=== PATIENT | male | born 1950 | race Caucasian/White ===

== ENCOUNTER 2019-04-07 09:22 | Outpatient (CLI) | payer MEDICARE ==
[2019-04-07 17:52] VITALS: BP 126/72
--- NOTE | 2019-04-07 17:52 | SLEEP CARE CONSULTATION ---
Information from patient questionnaire entered by Sammie Dahl. I have reviewed and concur with the information entered by Sammie Dahl. This document represents the service I personally performed and the decisions made by me, Dagoberto Walker MD, [facility]. History of Present Illness Reason for Visit: New patient, Previously diagnosed sleep apnea, sleep apnea on CPAP therapy Chief Complaint: reports: Other (need new CPAP) Duration of Symptoms: 20+ years Usual bedtime: 2330 Time it takes to fall asleep: 5-10 minutes Snores at night: Yes (without CPAP) Observed to quit breathing while asleep: No Sleeps alone due to snoring: Yes (not when they travel) Number of times waking at night: 1 Reasons for waking at night: reports: Bathroom Recalls having dreams: Yes Usually gets out of bed at: 0730 Feels refreshed in the morning: Yes Morning headache: No Sleepy or fatigued during the day: No Ever fallen asleep while driving: No Takes day naps: No Dreams during day naps: No Prior sleep studies: Yes Year and Where: 2010 in [place], [place] Additional HPI information: I had the pleasure of seeing Mr. Ortiz today regarding obstructive sleep apnea- hypopnea. As you know, he is a 68 year old gentleman who was diagnosed with the sleep-disordered breathing at [facility] about 10 years ago. The actual sleep study report is not available. He was prescribed a CPAP device set at 5 10 cmH2O. He uses the ResMed S9 every night and all night. The compliance data show usage in 180 out of the past 180 nights, averaging 6 hours a night. The residual AHI is 1.2 and average air leak is 1.1 L/minute. The 90th percentile pressure is 7 cmH2O. He wears ResMed AirFit P-10 nasal pillows. He gets his supplies from [employer]. He finds the treatment very beneficial. CPAP Compliance Data - Data Reviewed with Patient Average duration of nightly device use: 5h 58m Compliance rate %: 94 Current pressure setting (cmH2O): 5-10 Subjective Initial [place] Sleepiness Scale score: 2 Social History The patient's occupation is retired. Patient is and lives in [place]. Have you smoked in the past 12 months: No Alcohol use: Yes Alcohol amount and frequency: 1-2 most evenings Caffeine use: Yes Caffeine amount and frequency: 2-3 cups/day Family History Family history of sleep disordered breathing: Yes Family Hx Sleep Apnea: Sibling: Snoring Allergies and Home Medications Drug allergies reviewed: Yes Home medication list reviewed: Yes Review of Systems Weight loss over past 5 years: 15 Cardiovascular: denies: high blood pressure, palpitations, chest pain, irregular heart rate or pulse, leg or foot swelling, have to sleep sitting up, other Respiratory: denies: shortness of breath, wheeze, sputum production, chronic cough, other Gastrointestinal: reports: heartburn (occasional) Urinary: reports: urgency (mild). denies: incontinence, frequency, impotence, other Neurological: denies: headaches, seizure, head trauma, disorientation, speech dysfunction, gait or balance problems, fainting or unconsciousness, other Psychiatric: denies: Attention Deficit Hyperactivity, anxiety, depression, mood disorder, claustrophobia, other Ear/Nose/Throat: reports: nasal congestion, dry mouth/throat, hoarseness, wisdom teeth removed (*one) Endocrine: denies: thyroid disease, history of goiter, sluggishness, too hot or cold, excessive thirst, increased appetite, increased urination, unexplained weakness, other Musculoskeletal: denies: joint pain, neck pain, back pain, joint swelling, muscle pain or cramping, mobility problems, other Immunologic: reports: sneezing. denies: rash, itching, allergies to food or environment, other Physical Exam Vital signs obtained and entered by: Dr. Walker Blood Pressure: 126/72 Cuff size: regular Heart Rate: 72 O2 Saturation: 97 Height: 6 ft Weight: 200 lb Body Mass Index: 27.1 BMI Classification: Overweight Neck circumference: 16 HEENT: No craniofacial malformation Nostrils: patent to airflow Turbinates: normal Septum: midline Mouth and throat: narrow oropharynx Soft palate: long Hard palate: normal Uvula: normal Uvula visualization: 50% Mallampati Class II Tongue: normal in size Tonsils: small Chin and jaw: normal size and position Neck: normal w/o lymphadenopathy or thyromegaly Heart: regular rate and rhythm Lungs: clear bilaterally Abdomen: soft, non-tender Extremities: no edema or clubbing Neurologic: intact, no focal deficits Impression and Plan IMPRESSION: 1. Obstructive Sleep Apnea-Hypopnea Syndrome, of unknown severity, as previously diagnosed. The patient has had good treatment compliance. The current pressure setting appears effective and comfortable. The patient experiences improvement on the treatment. Narrow oropharynx and obesity are common predisposing factors for obstructive sleep apnea-hypopnea syndrome. The retrognathia probably plays a role. Pathophysiology of sleep-disordered breathing was discussed. Because the CPAP is now older than the useful life of 5 years, I will order the patient a new one and make it an autoCPAP set between 5 and 10 cmH2O. Plan: 1. Prescription made for CPAP supplies. 2. Try Respironics DreamWear nasal cushion mask and ResMed N30i mask 3. Avoid alcohol, sedative and muscle relaxant around bedtime. 4. Attempt to lose weight. 5. Return for follow up after one month on the new machine. I spent 100% of this 20 minute visit face to face with the patient with greater than 50% of this was spent time counseling the patient and coordination of care.
== END 2019-04-07 09:23 | disposition home or self-care (01) ==
LOC: SC 09:22
PROVIDERS: ATTEND Internal Medicine Pulmonary Disease
DX: G47.33 Obstructive sleep apnea (adult) (pediatric) (principal)
CPT/HCPCS: 99203; G0463; 99212

== ENCOUNTER 2019-07-07 09:43 | Outpatient (CLI) | payer MEDICARE ==
--- NOTE | 2019-07-07 10:38 | SLEEP CARE CONSULTATION ---
Information from patient questionnaire entered by Sammie Dahl. I have reviewed and concur with the information entered by Sammie Dahl. This document represents the service I personally performed and the decisions made by me, Dagoberto Walker MD, [facility]. History of Present Illness Previous diagnosis: Moderate, Obstructive Sleep Apnea-Hypopnea Syndrome AHI: 26.5 Reason for follow up: first compliance Equipment type: CPAP Equipment obtained from: [employer] Mask style: Nasal pillows Prior sleep studies: Yes Year and Where: 2011 [facility] HPI additional information: HPI: Mr. Angel HARDY returned today for follow up of nasal CPAP therapy. He was diagnosed to have moderate obstructive sleep apnea-hypopnea syndrome (AHI was 26.5) over 10 years ago at [facility]. [employer] is his durable medical supplier. The patient wears a nasal mask. He reports using the device nightly and all through the night. The compliance report shows usage in 30 nights out of the past 30 nights, averaging 5.9 hours a night. The > 4 hour compliance rate for the past 30 days is 100%. He complained of headache and dry mouth. He thinks that the pressure of 5 10 cmH2O is comfortable. On the CPAP therapy he notices improvement in his sleep quality, and that he wakes up feeling fresher in the morning and more awake/alert during the day. [place] Sleepiness Scale score is 2. His notices no snore at all. The average r esidual AHI is 6.7; and average time in large leak per day is 5 minutes. The 90th percentile pressure is 9.1 cmH2O. CPAP Compliance Data - Data Reviewed with Patient Average duration of nightly device use: 5h 55m Compliance rate %: 93.3 Current pressure setting (cmH2O): 5-10 Humidity settin Heated hose settin Average residual AHI: 6.7 Average large leak: 5m 16s Subjective Patient concerns: reports: nasal congestion (sometimes), dry mouth, nose, throat (sometimes), other (headache sometimes) Initial [place] Sleepiness Scale score: 2 Current [place] Sleepiness Scale score: 2 Allergies and Home Medications Drug allergies reviewed: Yes Home medication list reviewed: Yes Physical Exam Height: 6 ft Weight: 200 lb Body Mass Index: 27.1 BMI Classification: Overweight Impression and Plan IMPRESSION: 1. Obstructive Sleep Apnea-Hypopnea Syndrome, moderate, with the patient doing well on nasal CPAP therapy. He has excellent compliance and significant clinical improvement. The current pressure appears comfortable but slightly ineffective. His nasal pillows fit well. Overall, he is very satisfied with treatment and plans to continue with it long-term. I will raise the pressure range to make the treatment more effective. He should increase the heated humidifier setting if he is dry or congested. PLAN: 1. AutoCPAP raised to 7 - 12 cmH2O via the modem. 2. Try Respironics DreamWear nasal cushion mask or ResMed N30i mask. 3. Increase the heated humidifier setting. I showed him how to do this. 4. Return in one month for follow up to recheck the residual AHI value. I spent 100% of this visit face to face with the patient with greater than 50% of this was spent time counseling the patient and coordination of care.
== END 2019-07-07 09:44 | disposition home or self-care (01) ==
LOC: SC 09:43
PROVIDERS: ATTEND Internal Medicine Pulmonary Disease
DX: G47.33 Obstructive sleep apnea (adult) (pediatric) (principal); E66.3 Overweight; Z68.27 Body mass index [BMI] 27.0-27.9, adult
CPT/HCPCS: 99213; G0463; 99212

== ENCOUNTER 2019-08-18 16:40 | Outpatient (CLI) | payer MEDICARE ==
--- NOTE | 2019-08-18 11:25 | SLEEP CARE CONSULTATION ---
Information from patient questionnaire entered by Sammie Dahl. I have reviewed and concur with the information entered by Sammie Dahl. This document represents the service I personally performed and the decisions made by me, Dagoberto Walker MD, [facility]. History of Present Illness Previous diagnosis: Moderate, Obstructive Sleep Apnea-Hypopnea Syndrome AHI: 26.5 Reason for follow up: other (2 MONTH PRESSURE CHANGE) Equipment type: CPAP Equipment obtained from: [email or web address] HPI additional information: To minimize the risk of COVID-19 exposure, the patient has requested and consented to this video telemedicine visit. The patient also agrees to having his insurance billed. HPI: Mr. Angel HARDY was called today for follow up of nasal CPAP therapy. He was diagnosed to have moderate obstructive sleep apnea-hypopnea syndrome (AHI was 26.5) over 10 years ago at [facility]. [email or web address] is his durable medical supplier. The patient wears a nasal mask. He reports using the device nightly and all through the night. The compliance report shows usage in 30 nights out of the past 30 nights, averaging 6.3 hours a night. The > 4 hour compliance rate for the past 30 days is 100%. He complained of headache and dry mouth. He thinks that the pressure of 7 - 12 cmH2O is comfortable (raised from 5 10 cmH2O for elevated residual AHI two months ago). On the CPAP therapy he notices improvement in his sleep quality, and that he wakes up feeling fresher in the morning and more awake/alert during the day. The average residual AHI is 9.0 (was 6.7) with most of the events being hypopneas; and average time in large leak per day is 27 minutes (was 5 minutes). The 90th percentile pressure is 10.4 cmH2O. CPAP Compliance Data - Data Reviewed with Patient Average duration of nightly device use: 6H 6M Compliance rate %: 95 Current pressure setting (cmH2O): 7-12 Humidity settin Heated hose settin Average residual AHI: 8.1 Average large leak: 18M 15S Subjective Initial [place] Sleepiness Scale score: 2 Allergies and Home Medications Drug allergies reviewed: Yes Home medication list reviewed: Yes Review of Systems Review of systems same as previous: Yes Physical Exam Height: 6 ft Impression and Plan IMPRESSION: 1. Obstructive Sleep Apnea-Hypopnea Syndrome, moderate, with the patient doing well on nasal CPAP therapy. He has excellent compliance and significant clinical improvement. The current pressure appears comfortable but still is slightly ineffective. His nasal pillows fit well. Overall, he is very satisfied with treatment and plans to continue with it long-term. I will lower the pressure range back down because both the residual AHI and air leak have increased. I would like him to have a manual CPAP/BiPAP titration study when the sleep lab is back operational, hopefully, in a month or so. PLAN: 1. AutoCPAP lowered back down to 5 - 10 cmH2O via the modem, done. 2. Try Respironics DreamWear nasal cushion mask or ResMed N30i mask. He will go to [facility] in person. 3. Return in three months for follow up to recheck the residual AHI value. 4. Consider a manual CPAP titration study then. Visit Type: Telehealth Video Video Type: [employer] Location of Provider: Home Patient agrees and consents to this telehealth visit type: Yes Provider Statement: I spent 100% of the Telehealth Video Call with the patient with greater than 50% spent counseling the patient and coordination of care.
== END 2019-08-18 16:41 | disposition home or self-care (01) ==
LOC: SC 16:40
PROVIDERS: ATTEND Internal Medicine Pulmonary Disease
DX: G47.33 Obstructive sleep apnea (adult) (pediatric) (principal)
CPT/HCPCS: 99212; 99213

== ENCOUNTER 2019-11-23 09:51 | Outpatient (CLI) | payer MEDICARE ==
[2019-11-23 11:07] VITALS: BP 112/68
--- NOTE | 2019-11-23 11:07 | SLEEP CARE CONSULTATION ---
Information from patient questionnaire entered by Ele Reina. I have reviewed and concur with the information entered by Ele Reina. This document represents the service I personally performed and the decisions made by me, Verónica Ocampo, RN, MSN, [employer]INTE[employer]CE WORKER. History of Present Illness Service Date and Time: 11/23/2019 0951 Previous diagnosis: Moderate AHI: 26.4 (in 2010) Reason for follow up: three month Equipment type: CPAP Equipment obtained from: [employer] (in [place]) Mask style: Nasal pillows Backup mask available: Yes (old mask) Last cushion change: 2 days ago Prior sleep studies: Yes Year and Where: 2010 - [facility] Type of Sleep Study: Home sleep study HPI additional information: He tried a nasal mask that had the hose on top of head but it was not as comfortable as current mask. He has notified [employer] of his mask choice. CPAP Compliance Data - Data Reviewed with Patient Average duration of nightly device use: 6 Compliance rate %: 91.1 (90 days) Current pressure setting (cmH2O): 5-10 Humidity settin Heated hose settin Average residual AHI: 8.2 Central apnea: 0.6 Obstructive apnea: 1.5 Hypopnea: 6.1 Average large leak: 7 min 19 sec Subjective Patient concerns: reports: condensation in mask/hose (scant in mask), nasal congestion (occasional but none now), dry mouth, nose, throat (rarely - nose and mouth ). denies: mask discomfort, air blowing in eyes, mask leak noise, epistaxis Observed to snore while using device: No Current pressure setting perceived as: comfortable On therapy, patient: reports: sleeping better, awakening more refreshed, being more awake and alert during the day. denies: more rested overall, drowsiness while driving Initial [place] Sleepiness Scale score: 2 (in 2019) Current [place] Sleepiness Scale score: 1 Allergies and Home Medications Known drug allergies: Yes (CT scan dye ) Home medication list reviewed: No (taking no medications ) Review of Systems Review of systems same as previous: Yes Physical Exam Blood Pressure: 112/68 Cuff size: long Heart Rate: 66 O2 Saturation: 96 Height: 6 ft Weight: 205 lb Body Mass Index: 27.8 BMI Classification: Overweight Impression and Plan 1. Obstructive Sleep Apnea-Hypopnea Syndrome, moderate, with good treatment compliance and elevated residual AHI. apnea control. On CPAP therapy, the patient has better sleep quality and is more rested overall. Since his AHI remains elevated, I will order the manual titration study to find optimal comfortable pressure as he was not comfortable with higher ranges tried before. Patient agreed with plan. Nasal congestion can be reduced with increasing the CPAP humidity as shown on sample device. The heated hose can be adjusted higher if condensation with higher humidity setting. Saline nasal spray can also be used prior to CPAP to clear nasal secretions and wash off any nasal allergens to facilitate nasal breathing. He has at home and uses occasionally. In addition, a steamy shower before bed will often assist nasal drainage. Verbal instructions given on how to change humidity and heated hose settings with rationale explaining why to change. He can contact his DME for further instruction or check manual if needed. Oral dryness can be reduced by adjusting humidity setting higher or heated hose lower or by adjusting both settings. He uses a So Clean 2 so I informed him of the newFDA warning and to resume soap and water cleaning as discussed and stop the use of the So Clean. He is advised to check FDA site and agreed with plan. Patient's apnea severity and rationale for treatment to reduce apnea, improve sleep quality and reduce cardiovascular and cerebrovascular events was reviewed. * Continue auto CPAP pressure at 5-10 cmH2O * Schedule manual titration study * Implement methods to reduce nasal congestion and oral dryness. * Notify me if snoring with mask or feeling that the pressure is too much or too little * Attempt to lose weight * Call this office if any problems using CPAP * Return for follow up after manual titration , or sooner if concerns arise Visit Type: In Office Time Spent with Patient (minutes): 28 Provider Statement: I spent 100% of the Face to Face Visit with the patient with greater than 50% spent counseling the patient and coordination of care.
== END 2019-11-23 09:52 | disposition home or self-care (01) ==
LOC: SC 09:51
PROVIDERS: ATTEND Nurse Practitioner Family
DX: G47.33 Obstructive sleep apnea (adult) (pediatric) (principal); E66.3 Overweight; Z68.27 Body mass index [BMI] 27.0-27.9, adult
CPT/HCPCS: 99214; G0463; 99212

== ENCOUNTER 2020-02-08 20:17 | Outpatient (CLI) | payer MEDICARE | END 2020-02-08 20:18 | disposition home or self-care (01) | LOC: SC 20:17 | PROVIDERS: ATTEND Nurse Practitioner Family | DX: G47.33 Obstructive sleep apnea (adult) (pediatric) (principal); G47.61 Periodic limb movement disorder | CPT/HCPCS: 95811 ==

== ENCOUNTER 2020-02-22 16:29 | Outpatient (CLI) | payer MEDICARE ==
[2020-02-23 11:24] VITALS: BP 120/80
--- NOTE | 2020-02-23 11:24 | SLEEP CARE CONSULTATION ---
Information from patient questionnaire entered by Sammie Dahl. I have reviewed and concur with the information entered by Sammie Dahl. This document represents the service I personally performed and the decisions made by me, Verónica Ocampo, RN, MSN, [employer] REPAIRER. History of Present Illness Service Date and Time: 02/22/2020 7024 Previous diagnosis: Moderate, Obstructive Sleep Apnea-Hypopnea Syndrome AHI: 26.4 (in 2010) Reason for follow up: with manual titration, other (2 month) Equipment type: CPAP Equipment obtained from: [employer] (in [place]) Mask style: Nasal pillows (Nunce Pro nasal pillows - large) Prior sleep studies: Yes Year and Where: 2010 - [facility] Type of Sleep Study: Polysomnography HPI additional information: Nasal symptoms and oral dryness less with adjustment of humidity. He wonders if he is oral venting. He does not use a chinstrap. Sleep Study - Results Type of Sleep Study: Polysomnography Prior sleep studies: Yes Year and Where: 2010 - [facility] Polysomnography/Home Sleep Study results: The quality of the study is good. CPAP was initiated at 4 cmH2O and titrated up to CPAP at 7 cmH2O. CPAP at 7 cmH2O appeared to be optimal (AHI of 0.2 per hour on the pressure). There was supine REM sleep on the pressure. Oxygen saturation was normal throughout the night. Lower CPAP settings appeared adequate as well. The patient appeared to have tolerated positive airway pressure therapy very well. The patients sleep efficiency was normal. The sleep architecture was normal as well. There was moderate periodic leg movement of sleep not associated with sleep fragmentation. Cardiac rhythm was normal sinus rhythm without significant arrhythmia. No abnormal behavior (parasomnia) observed during the night. CPAP Compliance Data - Data Reviewed with Patient Average duration of nightly device use: 5 hours 46 minutes Compliance rate %: 90 Current pressure setting (cmH2O): 5-10 Humidity settin Heated hose settin Average residual AHI: 10 Average large leak: 15 minutes 14 seconds Subjective Patient concerns: reports: dry mouth, nose, throat. denies: aerophagia, mask discomfort, air blowing in eyes, mask leak noise, condensation in mask/hose, nasal congestion, epistaxis, other Observed to snore while using device: No Current pressure setting perceived as: comfortable On therapy, patient: reports: sleeping better, awakening more refreshed, being more awake and alert during the day, more rested overall. denies: drowsiness while driving Initial [place] Sleepiness Scale score: 2 (in 2020) Allergies and Home Medications Known drug allergies: No Home medication list reviewed: No (no meds ) Review of Systems Review of systems same as previous: No (excision of ganglion cyst of left toe) Physical Exam Blood Pressure: 120/80 Cuff size: long Heart Rate: 66 O2 Saturation: 98 Height: 6 ft Weight: 203 lb Body Mass Index: 27.5 BMI Classification: Overweight Impression and Plan 1. Obstructive Sleep Apnea-Hypopnea Syndrome,moderate , with unknown treatment compliance and apnea control. There was a outage of the internet and phones so compliance was not available at time of office visit On CPAP therapy, the patient has better sleep quality and is more rested overall. Patient had a manual titration study to evaluate for optimal pressure as past higher CPAP pressures tried were uncomfortable. The manual titration study showed that 7cmH20 pressure was best with current patient mask with a residual AHI of 0.2. Thus I will change patient pressure to 7cmH20. Patient advised to contact me if the pressure is uncomfortable. Methods discussed to reduce oral venting such as adjusting humidity more and / or adding a chinstrap. The patient deferred as wants to focus on one change at a time and agreed to change CPAP pressure. Patient's apnea severity and rationale for treatment to reduce apnea, improve sleep quality and reduce cardiovascular and cerebrovascular events was reviewed. 2. Periodic limb movement, moderate, that did not fragment patients sleep. Periodic limb movement of sleep (PLMS) is characterized by episodes of repetitive limb movements that occur during sleep and usually involve the lower limbs. The etiology is unknown but can be associated with restless leg syndrome (RLS), neuropathy, spinal cord diseases, kidney disease, rheumatological disorders, narcolepsy, obstructive sleep apnea, and REM sleep behavior disorder. Other factors that can increase PLMS and/or RLS are heredity and iron deficiency as reflected by a low serum ferritin level below 50 to 75mcg / L. Several medications can precipitate or aggravate PLMS such as selective serotonin re- uptake inhibitor antidepressants, tricyclic antidepressants, lithium, and dopamine receptor antagonists with the exception of bupropion. Caffeine can also aggravate PLMS and should be avoided. Sleep hygiene methods can also improve sleep as well as lifestyle changes such as regular exercise. Patient was advised that no treatment is needed at this time. If symptoms increase, then further evaluation is indicated. * Change CPAP pressure to 7 cmH2O * Notify me if snoring with mask or feeling that the pressure is too much or too little * Attempt to lose some weight * Call this office if any problems using CPAP * Return for follow up in 1-2 months , or sooner if concerns arise Addendum: Compliance reviewed 02-23-20 and continues to show elevation of residual AHI. Late entry of this EMR note due to internet outage. Visit Type: In Office Time Spent with Patient (minutes): 32 Provider Statement: I spent 100% of the Face to Face Visit with the patient with greater than 50% spent counseling the patient and coordination of care.
== END 2020-02-22 16:30 | disposition home or self-care (01) ==
LOC: SC 16:29
PROVIDERS: ATTEND Nurse Practitioner Family
DX: G47.33 Obstructive sleep apnea (adult) (pediatric) (principal); G47.61 Periodic limb movement disorder; E66.3 Overweight; Z68.27 Body mass index [BMI] 27.0-27.9, adult
CPT/HCPCS: 99214; G0463; 99212

== ENCOUNTER 2020-08-06 18:34 | Emergency (ER) | payer MEDICARE ==
--- NOTE | 2020-08-06 19:28 | ED Physician Documentation ---
PD HPI ABD PAIN - Stated complaint Stated Complaint: DIARRHEA,MALE - Chief complaint Chief Complaint: Abd Pain - History obtained from History obtained from: Patient - History of Present Illness Timing - onset: Enter time (09:00), Today Timing - details: Gradual onset, Waxing and waning Pain level now: 7 (across lower abdomen, predominantly suprapubic) Quality: Pain Location: Other (across lower abdomen) Improved by: Other (nothing) Worsened by: Palpation Associated symptoms: No: Fever (Tmax at home was 99), Nausea, Vomiting, Hematemesis, Diarrhea, Constipation, Melena, Hematochezia, Dysuria, Hematuria Similar symptoms before: Has not had sx before Recently seen: Not recently seen - Additional information Additional information: c/o urge to urinate but unable to have any UO, since earlier today. Also, since 9 AM, has had pain across lower abdomen associate with urge to defecate with only small amount of watery stool output. Review of Systems Constitutional: denies: Fever, Chills, Sweats Cardiac: reports: Reviewed and negative Respiratory: reports: Reviewed and negative GI: reports: Abdominal Pain. denies: Abdominal Swelling, Nausea, Vomiting, Constipation, Diarrhea, Hematemesis, Bloody / black stool : reports: Unable to Void. denies: Dysuria, Frequency, Incontinent Musculoskeletal: denies: Back pain PD PAST MEDICAL HISTORY - Past Medical History Past Medical History: No - Past Surgical History Past Surgical History: Yes General: Other (left inguinal hernia repair) HEENT: Other (multiple sinus surgeries) - Allergies Allergies/Adverse Reactions: Allergies Allergy/AdvReac Type Severity Reaction Status Date / Time No Known Drug Allergies Allergy Verified 08/06/20 18:47 - Living Situation Living Arrangement: reports: At home PD ED PE NORMAL - Vitals Vital signs reviewed: Yes - General General: Alert and oriented X 3, No acute distress, Well developed/nourished - Cardiac Cardiac: No murmur - Respiratory Respiratory: No respiratory distress, Clear bilaterally - Abdomen Abdomen: Soft, Other (TTP across lower abdomen without rebound or guarding) - Back Back: No CVA TTP - Derm Derm: Normal color, Warm and dry - Extremities Extremities: No edema PD ED PE EXPANDED - Cardiac Cardiac: Tachy, Regular Rhythm Results - Vitals Vitals: Vital Signs - 24 hr 08/06/20 08/06/2008/06/21 18:47 19:37 21:10 Temperature 36.8 C 36.8 C 37.0 C Heart Rate 120 H 120 H 86 Respiratory 16 16 16 Rate Blood Pressure 132/90 H 132/90 H 117/76 O2 Saturation 97 97 98 08/06/20 21:59 Temperature 36.9 C Heart Rate 97 Respiratory 18 Rate Blood Pressure 133/81 H O2 Saturation 97 Oxygen O2 Source Room air - Labs Labs: Laboratory Tests 08/06/20 08/06/20 08/06/20 19:11 19:11 19:53 WBC 18.6 H RBC 5.35 Hgb 16.6 Hct 48.0 MCV 89.7 MCH 31.0 MCHC 34.6 RDW 12.1 Plt Count 279 MPV 10.1 Neut # (Auto) 16.2 H Lymph # (Auto) 1.3 L Mccreary # (Auto) 1.0 Eos # (Auto) 0.0 Baso # (Auto) 0.0 Absolute Nucleated RBC 0.00 Nucleated RBC % 0.0 Sodium 137 Potassium 3.8 Chloride 103 Carbon Dioxide 23 Anion Gap 11.0 BUN 19 Creatinine 1.0 Estimated GFR (MDRD) 74 L Glucose 138 H Calcium 9.7 Total Bilirubin 1.1 H AST 29 ALT 33 Alkaline Phosphatase 71 Total Protein 7.8 Albumin 4.7 Globulin 3.1 Albumin/Globulin Ratio 1.5 Lipase 27 Urine Color YELLOW Urine Clarity CLEAR Urine pH 6.0 Ur Specific [place] 1.025 Urine Protein NEGATIVE Urine Glucose (UA) NEGATIVE Urine Ketones TRACE Urine Occult Blood NEGATIVE Urine Nitrite NEGATIVE Urine Bilirubin NEGATIVE Urine Urobilinogen 0.2 (NORMAL) Ur Leukocyte Esterase NEGATIVE Ur Microscopic Review NOT INDICATED Urine Culture Comments NOT INDICATED - Rads (name of study) CT A/P Radiology: Prelim report reviewed, See rad report PD MEDICAL DECISION MAKING - ED course Complexity details: reviewed results, re-evaluated patient, considered differential, d/w patient ED course: patient had significant improvement after burch placed and approximately 500cc urine output into bag. lab work shows leukocytosis but CT does not reveal acute/emergent process. Per radiologist's interpretation, "significant stool consistent with constipation. No obstruction". incidental note of "low- attenuation focus within the right lower pelvis suggestive of fluid attenuation." Test results reviewed w/ patient. He is comfortable with plan to d/c home. He has no h/o urinary retention. I discussed option of leaving burch catheter in but he prefers to have it removed prior to discharge. He is given magnesium citrate to take at home as directed to treat the constipation, as well as given glycerin suppository for home use, as well. I advised him to follow up with his doctor regarding tonight's symptoms as well as to discuss the abnormal CT finding, which might benefit from repeat study at some point for better characterization. Departure - Departure Disposition: 01 Home, Self Care Clinical Impression: Urinary retention Constipation Qualifiers: Constipation type: unspecified constipation type Qualified Code(s): K59.00 - Constipation, unspecified Condition: Good Instructions: ED Constipation, ED Retention Urinary Male Follow-Up: Jay Saldana MD [Primary Care Provider] - Discharge Date/Time: 08/06/20 21:58
[2020-08-06 19:33] LABS: BASOPHILS % (AUTO) 0.2 %; HGB - HEMOGLOBIN 16.6 g/dL (14.0-18.0); LYMPHOCYTES # (AUTO) 1.3 10^3/uL (1.5-3.5); LYMPHOCYTES % (AUTO) 6.7 %; MEAN CORPUSCULAR HGB CONC 34.6 g/dL (32.0-36.0); MEAN CORPUSCULAR VOLUME 89.7 fL (80.0-94.0); MEAN PLATELET VOLUME 10.1 fL (7.4-11.4); MONOCYTES % (AUTO) 5.2 %; NEUTROPHILS # (AUTO) 16.2 10^3/uL (1.5-6.6); NEUTROPHILS % (AUTO) 87.1 %; PLT - PLATELET COUNT 279 10^3/uL (130-450); RED BLOOD COUNT 5.35 10^6/uL (4.70-6.10); RED CELL DISTRIBUTION WIDTH 12.1 % (12.0-15.0); WHITE BLOOD COUNT 18.6 x10^3/uL (4.8-10.8)
[2020-08-06 19:47] LABS: ALBUMIN 4.7 g/dL (3.2-5.5); ALBUMIN/GLOBULIN RATIO 1.5 (1.0-2.2); BILIRUBIN,TOTAL 1.1 mg/dL (0.2-1.0); CALCIUM 9.7 mg/dL (8.5-10.3); POTASSIUM 3.8 mmol/L (3.5-5.0); TOTAL PROTEIN 7.8 g/dL (6.7-8.2)
[2020-08-06 19:59] LABS: BILIRUBIN,URINE NEGATIVE (NEGATIVE); GLUCOSE, URINE (UA) NEGATIVE (NEGATIVE); KETONES,URINE (UA) TRACE mg/dL (NEGATIVE); LEUKOCYTE ESTERASE, URINE NEGATIVE (NEGATIVE); NITRITE,URINE NEGATIVE (NEGATIVE); OCCULT BLOOD,URINE NEGATIVE (NEGATIVE); PROTEIN,URINE NEGATIVE (NEGATIVE); UROBILINOGEN,URINE 0.2 (NORMAL) E.U./dL (NORMAL)
[2020-08-06 20:07] LABS: CLARITY,URINE CLEAR (CLEAR)
--- NOTE | 2020-08-06 20:52 | CT Report ---
PROCEDURE: Abdomen/Pelvis WO INDICATIONS: tenderness, pain across lower abdomen TECHNIQUE: Noncontrast 5 mm thick sections acquired from the diaphragms to the symphysis. 5 mm coronal and sagi ttal reformats were then performed. For radiation dose reduction, the following was used: automated exposure control, adjustment of mA and/or kV according to patient size. COMPARISON: None. FINDINGS: Image quality: Excellent. ABDOMEN: Lung bases: Lung bases are clear. Heart size is normal. Solid organs: Liver is mildly prominent size. The spleen is within normal limits.. Gallbladder is u nremarkable Pancreas is normal in contours. No adrenal nodules. Kidneys are normal in size, withou t hydronephrosis or nephrolithiasis. Peritoneum and bowel: Unenhanced bowel loops demonstrate normal wall thickness and caliber. No free fluid or air. Prominent stool without obstruction. Appendix is normal. Nodes and vessels: No retroperitoneal or mesenteric adenopathy by size criteria. Aorta and inferior vena cava are normal in caliber. Miscellaneous: Small fat-containing ventral hernia is present. PELVIS: Genitourinary: Bladder is collapsed with a Keene catheter. Miscellaneous: Fat-containing inguinal hernias are present. There is a low-attenuation focus measurin g 5.2 x 3.1 cm in the right lower pelvis, Hounsfield units measuring 3. It is along the course of the distal right ureter. There is no enhancement. Bones: No suspicious bony lesions. No vertebral body compression fractures. IMPRESSION: 1. Significant stool consistent with constipation. No obstruction. 2. Low-attenuation focus within the right lower pelvis suggestive of fluid attenuation. Differential includes but not limited to cyst, possible seroma or potentially ureterocele. No priors are available for comparison. Reviewed by: Luanne Bailey MD on 08/06/2020 8:50 PM PDT Approved by: Luanne Bailey MD on 08/06/2020 8:50 PM PDT Station ID: [id number]
[2020-08-06] MEDS ORDERED: MAGNESIUM CITRATE 296 ML BOTTLE PO STA (21:34)
[2020-08-06] MEDS ORDERED: GLYCERIN ADULT SUPP PR STA (21:34)
[2020-08-06 22:01] VITALS: BP 133/81
== END 2020-08-06 21:58 | disposition home or self-care (01) ==
LOC: ED 18:34
DX: R33.9 Retention of urine, unspecified (principal); K59.00 Constipation, unspecified
CPT/HCPCS: 36415; 51702; 51798; 74176; 80053; 81003; 83690; 85025; 99284; A9270; 81001; 87086

== ENCOUNTER 2021-02-16 11:11 | Outpatient (CLI) | payer MEDICARE ==
--- NOTE | 2021-02-16 11:46 | SLEEP CARE CONSULTATION ---
Information from patient questionnaire entered by Sammie Dahl. I have reviewed and concur with the information entered by Sammie Dahl. This document represents the service I personally performed and the decisions made by , Joslyn Espana ARNP. History of Present Illness Service Date and Time: 02/16/2021 1111 Previous diagnosis: Moderate, Obstructive Sleep Apnea-Hypopnea Syndrome AHI: 26.4 (in 2010) Reason for follow up: annual, other (since CPAP recall, was using old Resmed machine but that is now acting up) Equipment type: CPAP Equipment obtained from: [employer] (in [place]; getting supplies as needed) Mask style: Nasal pillows (Nunce Pro nasal pillows - large) Backup mask available: Yes (old mask) Last cushion change: 1 week Prior sleep studies: Yes Year and Where: 2010 - [facility] Type of Sleep Study: Polysomnography HPI additional information: JUAN M HILLS was diagnosed to have moderate, AHI 26.4, obstructive sleep apnea- hypopnea syndrome and returned today for CPAP therapy annual follow-up. Sleep Study - Results Type of Sleep Study: Polysomnography Prior sleep studies: Yes Year and Where: 2010 - [facility] CPAP Compliance Data - Data Reviewed with Patient Average duration of nightly device use: 6 hours 14 minutes Compliance rate %: 97 Current pressure setting (cmH2O): 7 Average residual AHI: 2.0 Central apnea: 1.3 Obstructive apnea: 0.1 Subjective Missed days of use due to: reports: other (recall on new device) Patient concerns: reports: dry mouth, nose, throat, other (CPAP recall, using old machine (Resmed), current machine (Resmed) humidifier not working, headaches sometimes). denies: aerophagia, mask discomfort, air blowing in eyes, mask leak noise, condensation in mask/hose, nasal congestion, epistaxis Observed to snore while using device: No Current pressure setting perceived as: comfortable On therapy, patient: reports: sleeping better, awakening more refreshed, being more awake and alert during the day, more rested overall. denies: drowsiness while driving Initial [place] Sleepiness Scale score: 2 (in 2019) Current [place] Sleepiness Scale score: 0 Allergies and Home Medications Home medication list reviewed: Yes (no changes) Review of Systems Review of systems same as previous: Yes (no changes) Physical Exam Heart Rate: 65 O2 Saturation: 98 Height: 6 ft Weight: 194 lb Body Mass Index: 26.3 BMI Classification: Overweight Impression and Plan 1. Obstructive Sleep Apnea-Hypopnea Syndrome, moderate, with good treatment compliance and good apnea control. On CPAP therapy, the patient has better sleep quality and is more rested overall. Patient stopped using his DreamStation CPAP because of the recall on his device. He has been using an older ResMed device that he had but this has stopped working. Patient has already registered their device for the recall. Patient informed that they may use an inline CPAP filter that they can obtain online to reduce chance of any particles being inhaled or ingested. We discussed thoroughly the health risks of not using the CPAP versus continuing use with the filter in place. If patient is not able to sleep due to waking up choking, gasping for air or other respiratory distress that they may decide to continue using it until it is either replaced or repaired. Patient has an older device that is not on the recall that he is using. He thinks the heating element on the humidifier may not be working. He has cool air and some mild oral dryness. He states it is not an issue and he will be okay until he received his new device. He will call if he needs the machine serviced. Patient has changed his diet and has been losing some weight. Patient was encouraged to continue to try to lose weight for their overall health and to reduce apneas. Patient voiced understanding and agreement with plan. Patient's apnea severity and rationale for treatment to reduce apnea, improve sleep quality and reduce cardiovascular and cerebrovascular events was reviewed. * Continue auto CPAP pressure at 7 cmH2O on old device (5-10 on other machine) * Notify me if snoring with mask or feeling that the pressure is too much or too little * Continue to try to lose weight * Call this office if any problems using CPAP * Return for follow up in 1 year, or sooner if concerns arise Counseling Topics: Spare mask, Weight loss health impact Visit Type: In Office Time Spent with Patient (minutes): 26 Provider Statement: I spent 100% of the Face to Face Visit with the patient with greater than 50% spent counseling the patient and coordination of care.
== END 2021-02-16 11:12 | disposition home or self-care (01) ==
LOC: SC 11:11
PROVIDERS: ATTEND Nurse Practitioner Family
DX: G47.33 Obstructive sleep apnea (adult) (pediatric) (principal)
CPT/HCPCS: 99213; G0463; 99212

== ENCOUNTER 2022-03-02 13:49 | Outpatient (CLI) | payer MEDICARE ==
--- NOTE | 2022-03-02 14:39 | SLEEP CARE CONSULTATION ---
Information from patient questionnaire entered by Dotty Roldan. I have reviewed and concur with the information entered by Dotty Roldan. This document represents the service I personally performed and the decisions made by me, Joslyn Espana ARNP. History of Present Illness Service Date and Time: 03/02/2022 1349 Previous diagnosis: Moderate, Obstructive Sleep Apnea-Hypopnea Syndrome AHI: 26.4 (in 2010) Reason for follow up: annual (LAST SEEN 02/2021) Equipment type: CPAP (RESMED) Equipment obtained from: [employer] (in [place]; getting supplies as needed) Mask style: Nasal pillows (Nunce Pro nasal pillows - large) Backup mask available: No (will keep old mask when replaced) Last cushion change: monthly Prior sleep studies: Yes Year and Where: 2010 - [facility] Type of Sleep Study: Polysomnography HPI additional information: JUAN M HILLS was diagnosed to have moderate, AHI 26.4, obstructive sleep apnea- hypopnea syndrome and returned today for CPAP therapy annual follow-up. Sleep Study - Results Type of Sleep Study: Polysomnography Prior sleep studies: Yes Year and Where: 2010 - [facility] CPAP Compliance Data - Data Reviewed with Patient Average duration of nightly device use: 6 hours 17 minutes Compliance rate %: 92 (178/180 days used (02/14/2021-08/12/2021)) Current pressure setting (cmH2O): 7 Average residual AHI: 1.5 Central apnea: 0.9 Obstructive apnea: 0.1 Compliance data discussion: Patient states he uses his machine "religiously" but the data we can get from his card ends at 02/15/2021 with 97% compliance in last 30 days. Subjective Patient concerns: reports: dry mouth, nose, throat (occasionally from oral venting). denies: aerophagia, mask discomfort, air blowing in eyes, mask leak noise, condensation in mask/hose, nasal congestion, epistaxis Observed to snore while using device: No Current pressure setting perceived as: comfortable On therapy, patient: reports: sleeping better, awakening more refreshed, being more awake and alert during the day, more rested overall. denies: drowsiness while driving Initial [place] Sleepiness Scale score: 2 (in 2019) Current [place] Sleepiness Scale score: 0 (02/2022) Allergies and Home Medications Drug allergies reviewed: Yes (NKDA) Home medication list reviewed: Yes (no changes) Review of Systems Review of systems same as previous: Yes (no changes) Physical Exam Vital signs obtained and entered by: DOTTY Joseph MA Blood Pressure: 124/76 (LEFT ARM) Cuff size: regular Heart Rate: 85 O2 Saturation: 99 Height: 6 ft Weight: 203 lb 3.2 oz Body Mass Index: 27.5 BMI Classification: Overweight Impression and Plan 1. Obstructive Sleep Apnea-Hypopnea Syndrome, moderate, with good treatment compliance and good apnea control. On CPAP therapy, the patient has better sleep quality and is more rested overall. Patient received a new Dreamstation from [employer] but we do not have access to the data. He is compliance with his CPAP therapy. Patient has significant improvement of their sleep apnea and are satisfied with current CPAP therapy. Patient denies problems with oral dryness, nasal congestion, epistaxis, skin irritation or aerophagia. Patient's apnea severity and rationale for treatment to reduce apnea, improve sleep quality and reduce cardiovascular and cerebrovascular events was reviewed. 2. Overweight, unspecified. Currently patients BMI is 27.5. Thus patient is advised to lose weight. * Continue CPAP pressure at 7 cmH2O * Update supplies * Notify me if snoring with mask or feeling that the pressure is too much or too little * Attempt to lose weight * Call this office if any problems using CPAP * Return for follow up in 1 year, or sooner if concerns arise Counseling Topics: Spare mask, Weight loss health impact Visit Type: In Office Time Spent with Patient (minutes): 25 Provider Statement: I spent 100% of the Face to Face Visit with the patient with greater than 50% spent counseling the patient and coordination of care.
[2022-03-02 14:40] VITALS: BP 124/76
== END 2022-03-02 13:50 | disposition home or self-care (01) ==
LOC: SC 13:49
PROVIDERS: ATTEND Nurse Practitioner Family
DX: G47.33 Obstructive sleep apnea (adult) (pediatric) (principal)
CPT/HCPCS: 99213; G0463; 99212

== ENCOUNTER 2023-03-05 11:03 | Outpatient (CLI) | payer MEDICARE ==
--- NOTE | 2023-03-05 12:01 | Sleep Patient Instructions ---
Sleep Center Visit Summary - Patient Visit Information Reason for Visit: Annual Visit - Patient Instructions Additional Instructions: You will continue with CPAP therapy with pressure set at 7 cmH2O. A supply prescription will be updated with your DME. We encourage you to continue to try to lose weight. Please follow up with the sleep care office in 1 year. - Clinic Information Contact: [facility] [address] [place] [address] [email or web address] T: [phone]
--- NOTE | 2023-03-05 12:07 | SLEEP CARE CONSULTATION ---
Information from patient questionnaire entered by Dotty Roldan. I have reviewed and concur with the information entered by Dotty Roldan. This document represents the service I personally performed and the decisions made by , Joslyn Espana ARNP. History of Present Illness Service Date and Time: 03/05/2023 1103 Previous diagnosis: Moderate, Obstructive Sleep Apnea-Hypopnea Syndrome AHI: 26.4 (in 2010) Reason for follow up: annual (LAST SEEN 02/2022) Equipment type: CPAP (Dreamstation replaced, need card/machine) Equipment obtained from: [employer] (in [place]; getting supplies as needed) Mask style: Nasal pillows (Nuance Pro nasal pillows - large) Backup mask available: No Last cushion change: monthly Prior sleep studies: Yes Year and Where: 2010 - [facility] Type of Sleep Study: Polysomnography HPI additional information: JUAN M HILLS was diagnosed to have moderate, AHI 26.4, obstructive sleep apnea- hypopnea syndrome and returned today for CPAP therapy annual follow-up. Sleep Study - Results Type of Sleep Study: Polysomnography Prior sleep studies: Yes Year and Where: 2010 - [facility] CPAP Compliance Data - Data Reviewed with Patient Average duration of nightly device use: 6 hrs 3 mins Compliance rate %: 93.5 (153/154 days used) Current pressure setting (cmH2O): 4-20 (avg 90% - 9.3, max 11.2) Average residual AHI: 7 Average large leak: 7 mins 37 Subjective Patient concerns: reports: dry mouth, nose, throat (occasionally). denies: aerophagia, mask discomfort, air blowing in eyes, mask leak noise, condensation in mask/hose, nasal congestion, epistaxis Observed to snore while using device: No Current pressure setting perceived as: comfortable On therapy, patient: reports: sleeping better, awakening more refreshed, being more awake and alert during the day, more rested overall. denies: drowsiness while driving Initial [place] Sleepiness Scale score: 2 (in 2019) Current [place] Sleepiness Scale score: 0 Allergies and Home Medications Known drug allergies: No Drug allergies reviewed: Yes Home medication list reviewed: Yes (no changes) Allergy and home medication list: Allergies No Known Drug Allergies Allergy (Verified 03/04/23 09:26) Review of Systems Review of systems same as previous: Yes (no changes) Physical Exam Vital signs obtained and entered by: JOSLYN SPARROW Blood Pressure: 123/80 Cuff size: wrist (right) Heart Rate: 67 O2 Saturation: 98 Height: 6 ft Weight: 200 lb 3.2 oz Body Mass Index: 27.1 BMI Classification: Overweight Impression and Plan 1. Obstructive Sleep Apnea-Hypopnea Syndrome, moderate, with good treatment compliance and fair apnea control with elevated AHI. On CPAP therapy, the patient has better sleep quality and is more rested overall. His replacement Dreamstation was set at 4-20 cmH2O with some minimal elevation of his AHI. The pressure was adjusted to correct pressure setting. Patient denies problems with oral dryness, nasal congestion, epistaxis, skin irritation or aerophagia. Patient advised to contact me if pressure change is uncomfortable so that it can be adjusted. Goals for apnea control discussed. Patient's apnea severity and rationale for treatment to reduce apnea, improve sleep quality and reduce cardiovascular and cerebrovascular events was reviewed. 2. Overweight, unspecified. Currently patients BMI is 27.1. Obesity increases the risk of apnea, CPAP pressure requirements and overall health risks especially cardiovascular and diabetes. Thus patient is advised to lose weight. * Continue CPAP pressure at 7 cmH2O * Update supply prescription * Notify me if snoring with mask or feeling that the pressure is too much or too little * Attempt to lose weight * Call this office if any problems using CPAP * Return for follow up in 1 year, or sooner if concerns arise Counseling Topics: Spare mask, Weight loss health impact Prescriptions: Device supplies Follow up with Sleep Care in: 1 year Visit Type: In Office Time Spent with Patient (minutes): 24 Provider Statement: I spent 100% of the Face to Face Visit with the patient with greater than 50% spent counseling the patient and coordination of care.
[2023-03-05 12:12] VITALS: BP 123/80; O2SAT 98
== END 2023-03-05 11:04 | disposition home or self-care (01) ==
LOC: SC 11:03
PROVIDERS: ATTEND Nurse Practitioner Family
DX: G47.33 Obstructive sleep apnea (adult) (pediatric) (principal); E66.3 Overweight; Z68.27 Body mass index [BMI] 27.0-27.9, adult
CPT/HCPCS: 99213; G0463; 99212